=== PATIENT | female | born 2000 | race Caucasian/White ===

== ENCOUNTER 2020-09-04 23:25 | Emergency (ER) | payer OTHER ==
[~2020-09-04] VITALS: Ht 162.6 cm; Wt 59.1 kg
[2020-09-05] VITALS: TEMP 98.5
[2020-09-05 01:43] VITALS: BP 132/74; PULSE 83
== END 2020-09-05 01:43 | disposition home or self-care (01) ==
LOC: COL.ER 23:25
DX: R11.2 Nausea with vomiting, unspecified (principal); T40.7X5A Adverse effect of cannabis (derivatives), initial encounter
CPT/HCPCS: J2405; J7120